=== PATIENT | female | born 1980 | race Caucasian/White ===

== ENCOUNTER → 2017-09-18 | Outpatient (CLI) | payer BC ==
[~2017-09-18] MED LIST: FLUT0.0529 NAE; OMEP20CA59 PO; ONDA4TAB7 SL
--- NOTE | 2017-09-18 10:19 | DIAGNOSTIC IMAGING REPORT ---
LEFT INDEX FINGER 3 VIEWS HISTORY: Left index finger pain. COMPARISON: None. FINDINGS: Nondisplaced fracture at the volar base of the middle phalanx of the index finger. This extends to the PIP joint. No dislocation. Soft tissue swelling at the PIP joint. No radiopaque foreign bodies. IMPRESSION: Nondisplaced fracture at the volar base of the middle phalanx of the index finger. Electronically signed by: Alvaro Disla M.D. 09/18/2017 10:18 AM Dictated Date/Time: 09/18/2017 10:16 AM
== END | disposition home or self-care (01) ==
LOC: C.RDSM 09:54
PROVIDERS: ATTEND Physician Assistant
DX: S62.651A Nondisplaced fracture of middle phalanx of left index finger, initial encounter for closed fracture (principal); X58.XXXA Exposure to other specified factors, initial encounter

== ENCOUNTER → 2017-09-25 | Outpatient (CLI) | payer BC ==
--- NOTE | 2017-09-25 10:42 | DIAGNOSTIC IMAGING REPORT ---
L FINGER(S) MIN 2 VIEWS HISTORY: 37 years-old Female LEFT 2ND FINGER PAIN follow-up study to assess acute nondisplaced fracture of the second middle phalanx COMPARISON: Radiographs 09/18/2017 TECHNIQUE: 3 views of the fingers with attention to the second digit FINDINGS: Unchanged appearance of the acute nondisplaced intra-articular fracture involving the volar base of the second middle phalanx with mild associated soft tissue swelling. No additional acute fracture or dislocation. No significant degenerative changes or opaque foreign body. IMPRESSION: Unchanged appearance and alignment of the acute nondisplaced intra-articular fracture involving the volar base of the second middle phalanx. The above report was generated using voice recognition software. It may contain grammatical, syntax or spelling errors. Electronically signed by: Joesph Estrella M.D. 09/25/2017 10:40 AM Dictated Date/Time: 09/25/2017 10:39 AM
== END | disposition home or self-care (01) ==
LOC: C.RDSM 15:30
PROVIDERS: ATTEND Physician Assistant
DX: S62.629A Displaced fracture of middle phalanx of unspecified finger, initial encounter for closed fracture (principal); X58.XXXA Exposure to other specified factors, initial encounter